=== PATIENT | male | born 1970 ===

== ENCOUNTER 2017-09-15 14:35 | Emergency (ER) | payer OTHER ==
[2017-09-15 15:36] LABS: Absolute Lymphocytes (CBC) 2.7 K/uL (0.7-4.9); Absolute Monocytes 0.8 K/uL (0.1-1.3); Absolute Neutrophil 4.2 K/uL (1.8-8.0); Basophils % 0.7 % (0-1.3); Eosinophils % 1.1 % (0-4.4); Lymphocytes % 34.5 % (15.3-44.8); MCH 31.5 pg (27.0-35.0); MCV 91.5 fL (80-100); MPV 8.4 fL (7.6-11.3); Monocytes % 10.1 % (3.3-12.3); RBC Red Blood Cell Count 4.81 M/uL (4.33-5.43)
[2017-09-15 15:44] LABS: Protime INR 1.03
--- NOTE | 2017-09-15 15:47 | RAD REPORT ---
EXAM DESCRIPTION: Chuckie Single View09/15/2017 3:40 pm CLINICAL HISTORY: Chest pain COMPARISON: 2009 FINDINGS: The lungs appear clear of acute infiltrate. The heart is normal size IMPRESSION: No acute abnormalities displayed
[2017-09-15] MEDS ORDERED: ONDANSETRON 4 MG/2 ML VIAL ONE (15:48)
[2017-09-15] MEDS ORDERED: NA CHLORIDE 0.9% 1,000 ML ONE (15:48)
[2017-09-15] MEDS ORDERED: FAMOTIDINE 20 MG/2 ML VIAL IV ONE (15:48)
--- NOTE | 2017-09-15 16:12 | RAD REPORT ---
EXAM DESCRIPTION: CT - Head Brain Wo Cont - 09/15/2017 4:04 pm CLINICAL HISTORY: Headache and dizziness COMPARISON: 2009 TECHNIQUE: Computed axial tomography of the head was obtained. IV contrast was not requested. All CT scans are performed using dose optimization technique as appropriate and may include automated exposure control or mA/KV adjustment according to patient size. FINDINGS: An intracranial bleed is not seen . The ventricles are normal in caliber. No extra-axial fluid collection is noted. Fluid within the sinuses/ mastoids is not seen. IMPRESSION: No acute intracranial abnormality is seen. If patient's symptoms persist MRI of the bra in would be recommended.
[2017-09-15] MEDS ORDERED: MECLIZINE HCL 12.5 MG TAB ONE (16:30)
[2017-09-15] MEDS ORDERED: NA CHLORIDE 0.9% 500 ML ONE (16:30)
[2017-09-15 16:56] LABS: Potassium 3.7 mEq/L (3.6-5.0)
[2017-09-15 17:02] LABS: Albumin 4.1 g/dL (3.2-5.5); Bilirubin Direct 0.1 mg/dL (0-0.2); Bilirubin Total 0.7 mg/dL (0.3-1.2); Protein, Total 7.1 g/dL (6.0-8.3)
[2017-09-15 17:10] LABS: CKMB Creatine Kinase MB 0.8 ng/ml (0.3-4.0)
[2017-09-15] MEDS ORDERED: DEXAMETHASONE 10 MG/ML VIAL ONE (17:30)
[2017-09-15] MEDS ORDERED: DIAZEPAM 10 MG/2 ML INJ SYRINGE ONE (17:33)
--- NOTE | 2017-09-15 18:14 | EDPHYS ---
Physician Documentation [facility] Name: Cedric Austin Age: 47 yrs Sex: Male : 1970 Arrival Date: 09/15/2017 Time: 14:40 Bed 28 Private MD: out of town, doctor ED Physician Kwesi Ann HPI: 09/15 15:19 This 47 yrs old Unknown Male presents to ER via Ambulatory with complaints of Ear Pain, cp Dizziness, Vomiting. 15:19 The patient presents with hearing loss, partial, pain, that is acute. The complaints cp affect the left ear. 15:19 Onset: The symptoms/episode began/occurred 3 day(s) ago. cp 15:19 Modifying factors: the symptoms are aggravated by movement. Associated signs and cp symptoms: Pertinent positives: headache, left ear pain, tinnitus, nausea, vomiting, vertigo, Pertinent negatives: fever, rhinorrhea, sinus trouble, sore throat. Severity of symptoms: in the emergency department the symptoms are unchanged despite current medical treatment. The patient has been recently seen by a physician: in [place] emergency department, 2 day(s) ago, with similar presenting complaints, prescribed meclizine, antibiotic ear drops. Historical: - Allergies: 15:00 No Known Allergies; hb - Immunization history:: Adult Immunizations up to date. - Social history:: Smoking status: Patient/guardian denies using tobacco. - Ebola Screening: : No symptoms or risks identified at this time. ROS: 15:23 Constitutional: Negative for body aches, chills, fever, poor PO intake. cp 15:23 Eyes: Negative for injury, pain, redness, and discharge. cp 15:23 ENT: Positive for ear pain, hearing loss, Negative for drainage from ear(s), sore throat, difficulty swallowing, difficulty handling secretions, hoarseness. 15:23 Neck: Negative for pain with movement, pain at rest, stiffness, swollen nodes, tenderness. 15:23 Cardiovascular: Negative for chest pain, edema, palpitations. 15:23 Respiratory: Negative for cough, shortness of breath, wheezing. 15:23 Abdomen/GI: Positive for nausea, vomiting, Negative for abdominal pain, diarrhea, constipation, anorexia, black/tarry stool, rectal bleeding. 15:23 Back: Negative for pain at rest, pain with movement, radiated pain. 15:23 : Negative for urinary symptoms, testicular pain 15:23 MS/extremity: Negative for injury or acute deformity, decreased range of motion, pain, paresthesias, swelling, tenderness. 15:23 Skin: Negative for cellulitis, rash. 15:23 Neuro: Positive for dizziness, headache, Negative for altered mental status, loss of consciousness, syncope, near syncope, weakness. 15:23 All other systems are negative. Exam: 15:30 Constitutional: The patient appears alert, awake, non-diaphoretic, non-toxic, well cp developed, well nourished, in obvious distress, mildly distressed. 15:30 Head/Face: Normocephalic, atraumatic. cp 15:30 Eyes: Periorbital structures: appear normal, Pupils: equal, round, and reactive to light and accomodation, Extraocular movements: intact throughout, Conjunctiva: normal, no exudate, no injection, Sclera: no appreciated abnormality, Lids and lashes: appear normal, bilaterally, Visual edwards: are intact. 15:30 ENT: External ear(s): are unremarkable, Ear canal(s): are normal, clear, TM's: bulging, is not appreciated, bilaterally, dullness, bilaterally, erythema, is not appreciated, bilaterally, Nose: is normal, Mouth: Lips: moist, Oral mucosa: pink and intact, moist, Posterior pharynx: is normal, airway is patent, no erythema, no exudate, Voice: is normal. 15:30 Neck: External neck: is normal, Trachea: is midline with no obvious abnormalities, ROM/movement: is normal, is supple, without pain, no range of motions limitations, no meningismus, no nuchal rigidity. 15:30 Chest/axilla: Inspection: normal, Palpation: is normal, no crepitus, no tenderness. 15:30 Cardiovascular: Rate: normal, Rhythm: regular, Pulses: Pulses are 2+ in right radial cp artery and left radial artery. Heart sounds: murmur, not appreciated, rub, not appreciated, gallop, not appreciated, Edema: is not appreciated, JVD: is not appreciated. 15:30 Respiratory: the patient does not display signs of respiratory distress, Respirations: normal, no use of accessory muscles, no retractions, no splinting, no tachypnea, labored breathing, is not present, Breath sounds: are clear throughout, no decreased breath sounds, no stridor, no wheezing. 15:30 Abdomen/GI: Inspection: abdomen appears normal, Bowel sounds: active, all quadrants, Palpation: abdomen is soft and non-tender, in all quadrants, rebound tenderness, is not appreciated, voluntary guarding, is not appreciated, involuntary guarding, is not appreciated. 15:30 Back: pain, is absent, ROM is normal. 15:30 Musculoskeletal/extremity: Exam is negative for bony tenderness, calf tenderness, decreased range of motion, deformity, edema, injury. 15:30 Skin: cellulitis, is not appreciated, no rash present. 15:30 Neuro: Orientation: to person, place \T\ time. Mentation: lucid, able to follow commands, Cranial nerves: CN II- XII are normal as tested, Cerebellar function: Romberg testing is negative, normal finger to nose testing, heel to villanueva testing is normal, able to perform alternating rapid hand movements, Motor: moves all fours, strength is normal, Sensation: is normal. 15:52 ECG was reviewed by the Attending Physician. Vital Signs: 14:59 BP 109 / 75; Pulse 70; Resp 16; Temp 98.1; Pulse Ox 100% on R/A; Pain 4/10; hb 16:00 BP 117 / 81; Pulse 59; Resp 17; Pulse Ox 99% on R/A; rk2 17:50 BP 104 / 72; Pulse 62; Resp 17; Pulse Ox 99% on R/A; rk2 MDM: 15:06 Patient medically screened. cp 16:00 Differential diagnosis: otitis media, otitis externa, vertigo, sinusitis, mastoiditis. 18:10 Data reviewed: vital signs, nurses notes, lab test result(s), EKG, radiologic studies, cp CT scan. 18:10 Test interpretation: by ED physician or midlevel provider: ECG. Counseling: I had a cp detailed discussion with the patient and/or guardian regarding: the historical points, exam findings, and any diagnostic results supporting the discharge/admit diagnosis, lab results, radiology results, the need for outpatient follow up, a neurologist, to return to the emergency department if symptoms worsen or persist or if there are any questions or concerns that arise at home. Response to treatment: improved. Patient observed able to ambulate unassisted in ED. Nausea improved and vomiting resolved, and as a result, I will discharge patient. 09/15 15:18 Order name: Basic Metabolic Panel; Complete Time: 17:14 cp 09/15 17:14 Interpretation: BUN 24; GFR 86; Reviewed. 09/15 15:18 Order name: BNP; Complete Time: 16:08 cp 09/15 15:18 Order name: CBC with Diff; Complete Time: 16:08 09/15 16:08 Interpretation: Reviewed. 09/15 15:18 Order name: Ckmb; Complete Time: 17:14 cp 09/15 15:18 Order name: CPK; Complete Time: 17:14 cp 09/15 15:18 Order name: LFT's; Complete Time: 17:14 cp 09/15 15:18 Order name: Magnesium; Complete Time: 17:14 09/15 15:18 Order name: PT-INR; Complete Time: 16:08 09/15 15:18 Order name: Ptt, Activated; Complete Time: 16:08 09/15 15:18 Order name: Troponin (emerg Dept Use Only); Complete Time: 16:08 09/15 15:18 Order name: XRAY Chest (1 view); Complete Time: 16:08 09/15 16:08 Interpretation: Report review. 09/15 15:30 Order name: CT Head Brain wo Cont; Complete Time: 16:17 09/15 16:17 Interpretation: Report reviewed. 09/15 15:18 Order name: EKG; Complete Time: 15:19 09/15 15:18 Order name: Cardiac monitoring; Complete Time: 15:50 09/15 15:18 Order name: EKG - Nurse/Tech; Complete Time: 15:50 09/15 15:18 Order name: IV Saline Lock; Complete Time: 15:29 cp 09/15 15:18 Order name: Labs collected and sent; Complete Time: 15:29 cp 09/15 15:18 Order name: O2 Per Protocol; Complete Time: 15:29 cp 09/15 15:18 Order name: O2 Sat Monitoring; Complete Time: 15:29 cp EC:52 Rate is 58 beats/min. Rhythm is regular. [place] interval is normal. QRS interval is normal. cp QT interval is normal. No ST changes noted. Interpreted by me. Reviewed by me. Administered Medications: 15:49 Drug: Pepcid 20 mg Route: IVP; Site: left antecubital; rk2 16:31 Follow up: Response: No adverse reaction rk2 15:49 Drug: NS 0.9% 1000 ml Route: IV; Rate: 1 bolus; Site: left antecubital; rk2 16:10 Follow up: Response: No adverse reaction; IV Status: Completed infusion rk2 15:50 Drug: Zofran 4 mg Route: IVP; Site: left antecubital; rk2 16:31 Follow up: Response: No adverse reaction rk2 16:30 Drug: Meclizine 25 mg Route: PO; rk2 16:54 Follow up: Response: No adverse reaction rk2 16:30 Drug: NS 0.9% 500 ml Route: IV; Rate: bolus; Site: left antecubital; rk2 17:00 Follow up: Response: No adverse reaction; IV Status: Completed infusion rk2 17:36 Drug: Decadron - Dexamethasone 10 mg Route: IVP; Site: left antecubital; rk2 18:40 Follow up: Response: No adverse reaction rk2 17:36 Drug: Diazepam 2 mg Route: IVP; Site: left antecubital; rk2 18:40 Follow up: Response: No adverse reaction rk2 Disposition: 09/16 09:07 Co-signature as Attending Physician, Kwesi Ann MD I agree with the assessment and negrita plan of care. Disposition: 09/15/17 18:13 Discharged to Home. Impression: Vertigo. - Condition is Stable. - Discharge Instructions: Vertigo. - Prescriptions for Meclizine 25 mg Oral Tablet - take 1 tablet by ORAL route every 8 hours As needed; 30 tablet. Zofran 4 mg Oral Tablet - take 1 tablet by ORAL route every 12 hours As needed; 20 tablet. Medrol (Ned) 4 mg Oral Tablets, Dose Pack - take 1 tablet by ORAL route as directed - follow package instructions; 1 packet. - Medication Reconciliation Form, Thank You Letter, Antibiotic Education, Prescription Opioid Use form. - Follow up: Chacorta Quigley MD; When: 1 - 2 days; Reason: Recheck today's complaints. - Problem is an ongoing problem. - Symptoms have improved. Signatures: Dispatcher [employer] Kwesi Kruse MD MD cha Page, Corey, PA PA cp Baxter, Heather, RN RN Gilda Lindsay RN RN rk2 Corrections: (The following items were deleted from the chart) 09/15 19:06 18:13 09/15/2017 18:13 Discharged to Home. Impression: Vertigo. Condition is Stable. rk2 Forms are Medication Reconciliation Form, Thank You Letter, Antibiotic Education, Prescription Opioid Use. Follow up: Chacorta Quigley; When: 1 - 2 days; Reason: Recheck today's complaints. Problem is an ongoing problem. Symptoms have improved. cp
--- NOTE | 2017-09-15 18:14 | ER ---
Nurse's Notes [facility] Name: Cedric Austin Age: 47 yrs Sex: Male : 1970 Arrival Date: 09/15/2017 Time: 14:40 Bed 28 Private MD: out of town, doctor Diagnosis: Vertigo Presentation: 09/15 14:58 Presenting complaint: Patient states: Left ear pain, decreased hearing, headache, hb dizziness, and nausea x 2 days. Transition of care: patient was not received from another setting of care. Onset of symptoms was September 14, 2017. Risk Assessment: Do you want to hurt yourself or someone else? Patient reports no desire to harm self or others. Initial Sepsis Screen: Does the patient meet any 2 criteria? No. Patient's initial sepsis screen is negative. Does the patient have a suspected source of infection? No. Patient's initial sepsis screen is negative. 14:58 Method Of Arrival: Ambulatory hb 14:58 Acuity: LINDSAY 3 hb 14:59 Care prior to arrival: Medication(s) given: meclizine, neomycin ear drops. hb Triage Assessment: 16:33 General: Appears in no apparent distress. well groomed, well developed, well nourished, rk2 Behavior is calm, cooperative. Pain: Complains of pain in ear. EENT: Reports dizzy. Neuro: Level of Consciousness is alert, obeys commands, Oriented to person, place, time, situation. Cardiovascular: Rhythm is sinus rhythm. Respiratory: Airway is patent Respiratory effort is even, unlabored, Respiratory pattern is regular, symmetrical. Derm: Skin is pink, warm \\T\\ dry. Historical: - Allergies: 15:00 No Known Allergies; hb - Immunization history:: Adult Immunizations up to date. - Social history:: Smoking status: Patient/guardian denies using tobacco. - Ebola Screening: : No symptoms or risks identified at this time. Screenin:00 Abuse screen: Denies threats or abuse. rk2 16:00 Nutritional screening: No deficits noted. Tuberculosis screening: No symptoms or risk rk2 factors identified. 16:00 Fall Risk None identified. rk2 Assessment: 16:53 Reassessment: Patient appears in no apparent distress at this time. No changes from rk2 previously documented assessment. Patient and/or family updated on plan of care and expected duration. Pain level reassessed. Still feeling dizzy. 17:58 Reassessment: Pt. states that he is still feeling dizzy "the room is moving" and that rk2 he has left side ear pain. Pt. unable to get up without feeling dizzy. 18:11 Reassessment: Pt. was able to get up and ambulate with minimal assistance... states rk2 that once he was up and moving he felt better than he did. Vital Signs: 14:59 BP 109 / 75; Pulse 70; Resp 16; Temp 98.1; Pulse Ox 100% on R/A; Pain 4/10; hb 16:00 BP 117 / 81; Pulse 59; Resp 17; Pulse Ox 99% on R/A; rk2 17:50 BP 104 / 72; Pulse 62; Resp 17; Pulse Ox 99% on R/A; rk2 ED Course: 14:40 Patient arrived in ED. mr 14:40 out of town, doctor is Private Physician. mr 14:59 Triage completed. hb 15:00 Arm band placed on right wrist. hb 15:06 Kwesi Jarrell PA is PHCP. cp 15:06 Kwesi Ann MD is Attending Physician. cp 15:16 Gilda Lnidsay, RN is Primary Nurse. rk2 15:40 XRAY Chest (1 view) In Process Unspecified. EDMS 15:48 EKG done, by ED staff. jp3 15:54 CT Head Brain wo Cont Sent. rk2 16:00 Patient has correct armband on for positive identification. Bed in low position. Call rk2 light in reach. Side rails up X2. inside steward/stewardess on. Pulse ox on. 16:00 Inserted saline lock: 18 gauge in left. rk2 16:01 CT completed. Patient moved to CT via wheelchair. Patient moved back from CT. cw1 16:04 CT Head Brain wo Cont In Process Unspecified. EDMS 18:12 Chacorta Quigley MD is Referral Physician. cp 18:39 No provider procedures requiring assistance completed. IV discontinued. rk2 Administered Medications: 15:49 Drug: Pepcid 20 mg Route: IVP; Site: left antecubital; rk2 16:31 Follow up: Response: No adverse reaction rk2 15:49 Drug: NS 0.9% 1000 ml Route: IV; Rate: 1 bolus; Site: left antecubital; rk2 16:10 Follow up: Response: No adverse reaction; IV Status: Completed infusion rk2 15:50 Drug: Zofran 4 mg Route: IVP; Site: left antecubital; rk2 16:31 Follow up: Response: No adverse reaction rk2 16:30 Drug: Meclizine 25 mg Route: PO; rk2 16:54 Follow up: Response: No adverse reaction rk2 16:30 Drug: NS 0.9% 500 ml Route: IV; Rate: bolus; Site: left antecubital; rk2 17:00 Follow up: Response: No adverse reaction; IV Status: Completed infusion rk2 17:36 Drug: Decadron - Dexamethasone 10 mg Route: IVP; Site: left antecubital; rk2 18:40 Follow up: Response: No adverse reaction rk2 17:36 Drug: Diazepam 2 mg Route: IVP; Site: left antecubital; rk2 18:40 Follow up: Response: No adverse reaction rk2 Outcome: 18:13 Discharge ordered by . shantel 18:39 Discharged to home via wheelchair, with family. rk2 18:39 Condition: good 18:39 Discharge instructions given to patient, Prescriptions given X 3. 19:06 Patient left the ED. rk2 Signatures: Dispatcher [employer] EDLinn Ramírez RobertaMamie cw1 Kwesi Jarrell PA PA cp Baxter, Heather, Gilda Valle RN, RN RN rk2 Kenny Sandhu jp3
--- NOTE | 2017-09-16 06:31 | EKG ---
Test Date: 2017-09-15 Test Time: 15:48:51 [employer] Teacher: RALPH MEASUREMENT RESULTS: Intervals: Rate: 58 NE: 146 QRSD: 100 QT: 394 QTc: 386 [place]: P: 60 NE: 146 QRS: 87 T: 63 INTERPRETIVE STATEMENTS: Sinus bradycardia with sinus arrhythmia Otherwise normal ECG Compared to ECG 09/20/2009 04:12:13 Right-axis deviation no longer present Electronically Signed On 09-16-17 06:29:08 CDT by Kal Logan
== END 2017-09-15 19:06 | disposition home or self-care (01) ==
LOC: ER 14:35
DX: R42 Dizziness and giddiness (principal)
CPT/HCPCS: 36415; 70450; 71045; 80048; 80076; 82550; 82553; 83735; 83880; 84484; 85025; 85610; 85730; 93005; 96361; 96374; 96375; 99285; J1100; J2405; J3360; J7030

== ENCOUNTER 2019-04-28 09:41 | Emergency (ER) | payer OTHER ==
--- NOTE | 2019-04-28 10:47 | RAD REPORT ---
EXAM DESCRIPTION: CT - Head Brain Wo Cont - 04/28/2019 10:39 am CLINICAL HISTORY: Numbness COMPARISON: 2018 TECHNIQUE: Computed axial tomography of the head was obtained. IV contrast was not requested. All CT scans are performed using dose optimization technique as appropriate and may include automated exposure control or mA/KV adjustment according to patient size. FINDINGS: An intracranial bleed is not seen . The ventricles are normal in caliber. No extra-axial fluid collection is noted. Fluid within the sinuses/ mastoids is not seen. IMPRESSION: No acute intracranial abnormality is seen. If patient's symptoms persist MRI of the bra in would be recommended.
--- NOTE | 2019-04-28 10:53 | EDPHYS ---
Physician Documentation [facility] Name: Cedric Austin Age: 49 yrs Sex: Male : 1970 Arrival Date: 04/28/2019 Time: 09:43 Bed 14 Private MD: ED Physician Elvi Osman HPI: 04/28 10:51 This 49 yrs old Unknown Male presents to ER via Ambulatory with complaints of Ear Pain, ma2 Dizziness. 10:51 The patient presents with vertigo. The complaints affect the left pentecostal. Onset: The ma2 symptoms/episode began/occurred gradually, 1 day(s) ago. Associated signs and symptoms: Pertinent negatives: fever, rhinorrhea, shortness of breath, tinnitus. Severity of symptoms: At their worst the symptoms were mild in the emergency department the symptoms have resolved. The patient has not experienced similar symptoms in the past. Historical: - Allergies: 10:06 No Known Allergies; sv - PMHx: 10:08 vertigo; sv - Immunization history:: Adult Immunizations unknown. - Social history:: Smoking status: Patient/guardian denies using tobacco, the patient reports quitting approximately 8 years ago, Patient/guardian denies using alcohol, street drugs, The patient lives with family. - Ebola Screening: : No symptoms or risks identified at this time. - Family history:: not pertinent. ROS: 10:51 Constitutional: Negative for fever, chills, and weight loss. ma2 10:51 All other systems are negative. Exam: 10:51 Constitutional: This is a well developed, well nourished patient who is awake, alert, ma2 and in no acute distress. Head/Face: Normocephalic, atraumatic. Eyes: Pupils equal round and reactive to light, extra-ocular motions intact. Lids and lashes normal. Conjunctiva and sclera are non-icteric and not injected. Cornea within normal limits. Periorbital areas with no swelling, redness, or edema. ENT: Nares patent. No nasal discharge, no septal abnormalities noted. Tympanic membranes are normal and external auditory canals are clear. Oropharynx with no redness, swelling, or masses, exudates, or evidence of obstruction, uvula midline. Mucous membranes moist. Neck: Trachea midline, no thyromegaly or masses palpated, and no cervical lymphadenopathy. Supple, full range of motion without nuchal rigidity, or vertebral point tenderness. No Meningismus. Chest/axilla: Normal chest wall appearance and motion. Nontender with no deformity. No lesions are appreciated. Cardiovascular: Regular rate and rhythm with a normal S1 and S2. No gallops, murmurs, or rubs. Normal PMI, no JVD. No pulse deficits. Respiratory: Lungs have equal breath sounds bilaterally, clear to auscultation and percussion. No rales, rhonchi or wheezes noted. No increased work of breathing, no retractions or nasal flaring. Abdomen/GI: Soft, non-tender, with normal bowel sounds. No distension or tympany. No guarding or rebound. No evidence of tenderness throughout. MS/ Extremity: Pulses equal, no cyanosis. Neurovascular intact. Full, normal range of motion. Neuro: Awake and alert, GCS 15, oriented to person, place, time, and situation. Cranial nerves II-XII grossly intact. Motor strength 5/5 in all extremities. Sensory grossly intact. Cerebellar exam normal. Normal gait. Vital Signs: 10:06 BP 126 / 92; Pulse 69; Resp 16; Temp 98.7; Pulse Ox 100% ; sv 10:49 BP 123 / 82; Pulse 67; Resp 17 S; Pulse Ox 99% on R/A; ca1 MDM: 10:41 Patient medically screened. ma2 10:51 Differential diagnosis: otitis media, cerumen impaction, serotympanum. Data reviewed: [facility] vital signs, nurses notes. Counseling: I had a detailed discussion with the patient and/or guardian regarding: the historical points, exam findings, and any diagnostic results supporting the discharge/admit diagnosis, the presence of at least one elevated blood pressure reading (>120/80) during this emergency department visit, the need for outpatient follow up. Response to treatment: the patient's symptoms have markedly improved after treatment. 04/28 10:17 Order name: CT Head Brain wo Cont; Complete Time: 10:50 sv Administered Medications: 10:57 Drug: Meclizine 25 mg Route: PO; ca1 11:02 Follow up: Response: Medication administered at discharge. ca1 Disposition: 04/28/19 10:52 Discharged to Home. Impression: Vertiginous syndromes in diseases classified elsewhere, left ear. - Condition is Stable. - Discharge Instructions: Benign Positional Vertigo. - Prescriptions for Reglan 10 mg Oral Tablet - take 1 tablet by ORAL route every 6 hours . take 30 minutes before meals and at bedtime; 100 tablet. Medrol (Ned) 4 mg Oral Tablets, Dose Pack - take 1 tablet by ORAL route as directed - follow package instructions; 1 packet. - Medication Reconciliation Form, Thank You Letter, Antibiotic Education, Prescription Opioid Use form. - Follow up: Private Physician; When: Tomorrow; Reason: Recheck today's complaints, Continuance of care. Signatures: Dispatcher [employer] Sabi Finney, RN RN Elvi Luther MD MD ma2 Cha Rose RN RN ca1 Corrections: (The following items were deleted from the chart) 11:05 10:52 04/28/2019 10:52 Discharged to Home. Impression: Vertiginous syndromes in ca1 diseases classified elsewhere, left ear. Condition is Stable. Forms are Medication Reconciliation Form, Thank You Letter, Antibiotic Education, Prescription Opioid Use. Follow up: Private Physician; When: Tomorrow; Reason: Recheck today's complaints, Continuance of care. ma2
--- NOTE | 2019-04-28 10:53 | ER ---
Nurse's Notes [facility] Name: Cedric Austin Age: 49 yrs Sex: Male : 1970 Arrival Date: 04/28/2019 Time: 09:43 Bed 14 Private MD: Diagnosis: Vertiginous syndromes in diseases classified elsewhere, left ear Presentation: 04/28 10:04 Presenting complaint: Patient states: left ear pain and dizziness x 2 years, but sv reports the pain has increased and has numbness to left jaw/right jaw radiating to top of head that began today around 0300. No facial droop noted, no drift noted, java j2ee lead equal. Pt states "my doctor said the vein in the back of my head is blocked and he gave me Xarelto but none of the medicines I take help". Sensation to both sides of face intact at this time. Transition of care: patient was not received from another setting of care. Care prior to arrival: None. 10:04 Method Of Arrival: Ambulatory sv 10:04 Acuity: LINDSAY 3 sv 10:04 Onset of symptoms was 2018. Risk Assessment: Do you want to hurt yourself or someone sv else? Patient reports no desire to harm self or others. Initial Sepsis Screen: Does the patient meet any 2 criteria? No. Patient's initial sepsis screen is negative. Does the patient have a suspected source of infection? No. Patient's initial sepsis screen is negative. Historical: - Allergies: 10:06 No Known Allergies; sv - PMHx: 10:08 vertigo; sv - Immunization history:: Adult Immunizations unknown. - Social history:: Smoking status: Patient/guardian denies using tobacco, the patient reports quitting approximately 8 years ago, Patient/guardian denies using alcohol, street drugs, The patient lives with family. - Ebola Screening: : No symptoms or risks identified at this time. - Family history:: not pertinent. Screenin:54 Abuse screen: Denies threats or abuse. Denies injuries from another. Nutritional ca1 screening: No deficits noted. Tuberculosis screening: No symptoms or risk factors identified. Fall Risk None identified. Assessment: 10:49 General: Appears in no apparent distress. comfortable, Behavior is calm, cooperative, ca1 appropriate for age. Pain: Complains of pain in right ear Pain currently is 6 out of 10 on a pain scale. Pain began this morning. Neuro: Level of Consciousness is awake, alert, obeys commands, Oriented to person, place, time, situation, Appropriate for age Carbide Operator are equal bilaterally Moves all extremities. Gait is steady, Speech is normal, Facial symmetry appears normal, Pupils are PERRLA, Intact Reports dizziness, chronic x 2 years. Cardiovascular: Heart tones S1 S2 present Capillary refill < 3 seconds Patient's skin is warm and dry. Respiratory: Airway is patent Respiratory effort is even, unlabored, Respiratory pattern is regular, symmetrical, Breath sounds are clear bilaterally. GI: Abdomen is flat, non-distended, Bowel sounds present X 4 quads. Abd is soft and non tender X 4 quads. : No deficits noted. No signs and/or symptoms were reported regarding the genitourinary system. EENT: Tympanic membrane clear on left ear and right ear Ear canal clear on left ear and right ear. Derm: Skin is intact, is healthy with good turgor, Skin is pink, warm \\T\\ dry. Musculoskeletal: Circulation, motion, and sensation intact. Capillary refill < 3 seconds, Range of motion: intact in all extremities. Vital Signs: 10:06 BP 126 / 92; Pulse 69; Resp 16; Temp 98.7; Pulse Ox 100% ; sv 10:49 BP 123 / 82; Pulse 67; Resp 17 S; Pulse Ox 99% on R/A; ca1 ED Course: 09:43 Patient arrived in ED. as 10:06 Arm band placed on. sv 10:12 Triage completed. sv 10:39 CT Head Brain wo Cont In Process Unspecified. EDMS 10:41 Elvi Osman MD is Attending Physician. ma2 10:42 Cha Rose, JUANITA is Primary Nurse. ca1 10:54 Patient has correct armband on for positive identification. Bed in low position. Call ca1 light in reach. Side rails up X 1. Pulse ox on. NIBP on. Warm blanket given. 10:54 No provider procedures requiring assistance completed. Patient did not have IV access ca1 during this emergency room visit. Administered Medications: 10:57 Drug: Meclizine 25 mg Route: PO; ca1 11:02 Follow up: Response: Medication administered at discharge. ca1 Outcome: 10:52 Discharge ordered by . ma2 11:04 Discharged to home ambulatory. ca1 11:04 Condition: stable 11:04 Discharge instructions given to patient, Instructed on discharge instructions, follow up and referral plans. medication usage, Demonstrated understanding of instructions, follow-up care, medications, Prescriptions given X 2. 11:05 Patient left the ED. ca1 Signatures: Dispatcher [employer] Sabi Finney RN RN sv Tami Iniguez Mohammad, MD MD ma2 Cha Rose RN RN ca1 Corrections: (The following items were deleted from the chart) 10:12 10:04 Presenting complaint: Patient states: left ear pain and dizziness x 2 years, but sv reports the pain has increased and has sv 10:16 10:04 Presenting complaint: Patient states: left ear pain and dizziness x 2 years, but sv reports the pain has increased and has numbness to left jaw/right jaw radiating to top of head that began today around 0300. No facial droop noted, no drift noted, java j2ee lead equal. sv 10:17 10:04 Presenting complaint: Patient states: left ear pain and dizziness x 2 years, but sv reports the pain has increased and has numbness to left jaw/right jaw radiating to top of head that began today around 0300. No facial droop noted, no drift noted, java j2ee lead equal. Pt states "my doctor said the vein in the back of my head is blocked and he gave me Xarelto but none of the medicines I take help". sv
[2019-04-28] MEDS ORDERED: MECLIZINE HCL 12.5 MG TAB ONE (10:58)
[2019-04-28 13:24] VITALS: TEMP 98.7
[2019-04-28 13:25] VITALS: BP 123/82; O2SAT 99
== END 2019-04-28 11:05 | disposition home or self-care (01) ==
LOC: ER 09:41
DX: H92.02 Otalgia, left ear (principal); H82.2 Vertiginous syndromes in diseases classified elsewhere, left ear
CPT/HCPCS: 70450; 99284; J8597

== ENCOUNTER 2020-02-01 15:16 | Emergency (ER) | payer OTHER ==
--- OUTSIDE RECORDS SUMMARY | 2020-02-01 15:25 | XMS REPORT | Summary of Care ---
:1970 Author Organization [facility] [place] [address] Care Team Providers Name Role Phone Rafat Vick MD Primary Care Provider Reason for Referral Radiology Services (Routine) Status Reason Specialty Diagnoses / Procedures Referred By Serene howell Referred To Contact Pending Radiology Diagnoses Dizziness and giddiness Tinnitus of left ear New onset of headaches Flores Stokes Mr Imaging Procedures MRI BRAIN W WO CONTRAST JOSE Solis [address] [facility] [address] [place], [place] [address] [id number] [place], [place] [address] Phone: Consult, Test & Treat (Routine) Status Reason Specialty Diagnoses / Referred By Referred To Procedures Contact Contact Pending Consult, Test, Audiology Diagnoses Dizziness and giddiness Flores Stokes Antonino Lab and Treat Procedures NC CALORIC VESTIBULAR TEST W/REC BI BITHERMAL NC VESTIBULAR EVAL NYSTAG FOVL&PERPH STIM OSCIL TRACKING NC SINUSOIDAL ROTATIONAL TEST NC SUPPLEMENTAL ELECTRICAL TEST NC AUDITORY EVOKED POTENTIAL JOSE Solis [address] [facility] [address] [facility] [address] [place], [place] [address] [id number] [place], [place] Phone: [phone] Phone: Reason for Visit Reason Comments Tinnitus left ear, sometimes causes p ain Otalgia left ear pain and dizziness Encounter Details Date Type Department Care Team Description 12/16/2019 Office Visit [facility] Flores Stokes Tinnitus (left ear, Medicine JOSE Solis sometimes causes pain Otolaryngology [address] Otalgia (left ear [address] pain and dizziness) Billy [address] [place] [address] [place] [address] [phone] Allergies No Known Allergiesdocumented as of this encounter (statuses as of 12/16/2019) Medications Medication Sig Dispensed Refills Start Date End Date Status clopidogrel (PLAVIX) 75 MG Tablet 0 2019 Active pantoprazole (PROTONIX) 40 MG tablet 0 11/2019 Active documented as of this encounter (statuses as of 12/16/2019) Active Problems Not on filedocumented as of this encounter (statuses as of 12/16/2019) Social History Tobacco Use Types Packs/Day Years Used Date Former Smoker Smokeless Tobacco: Never Used Sex Assigned at Date Recorded Not on file documented as of this encounter Last Filed Vital Signs Vital Sign Reading Time Taken Comments Blood Pressure 107/82 12/16/2019 9:51 AM CDT Pulse 69 12/16/2019 9:51 AM CDT Temperature 36.2 C (97.1 F) 12/16/2019 9:51 AM CDT Respiratory Rate - - Oxygen Saturation - - Inhaled Oxygen Concentration - - Weight 66.7 kg (147 lb) 12/16/2019 9:51 AM CDT Height 157.5 cm (5' 2") 12/16/2019 9:51 AM CDT Body Mass Index 26.89 12/16/2019 9:51 AM CDT documented in this encounter Progress Notes Flores Stokes NP - 12/16/2019 9:30 AM CDT Chief complaint(s)/Reason(s) for Consultation: Chief Complaint Patient presents with Tinnitus left ear, sometimes causes pain Otalgia left ear pain and dizziness History of Present Illness: Cedric Austin is a 49 y.o. year old male presenting today for evaluation of persistent left-sidedtinnitus for the past two years. He describes his tinnitus as a constant, non-pulsatile, high-pitched ringing that is most noticeable in quiet environments, particularly before bed. He states it is often so loud and bothersome that it inhibits his sleep, prompting him to take sleep aids almost nightly. The intensity of his tinnitus varies and is, at times, so loud it is painful. He reports intermittent and sporadic left ear pain that is described as a sharp pain that radiates to the left side of hishead and neck. Pain lasts 10- 15 minutes at a time and is often precipitated by loud sounds and accompanied by dizziness, which he describes as a spinning that is, likewise, triggered by loud sounds. Novertigo with coughing or sneezing. He reports intermittent numbness to the left side of his face andneck, which lasts 15-30 minutes and occurs 1-2 times per week. In addition, he reports unilateral, left-sided headaches that last 2 hours at a time and occur about 3 times per week. No aura, light sensi tivity, sound sensitivity, nausea, emesis. He takes otc analgesics with some benefit. Surgical history is significant for sinus surgery two years, by Dr. Mir Thibodeaux ENT. Of note, he reports having consulted Dr. Thibodeaux, as well as Dr. Tolbert ENT, about his tinnitus and intermittent dizziness and otalgia. He reports he had a hearing test two years ago, at onset of tinnitus, which was reportedly normal. He denies otorrhea, subjective hearing loss, recent head and ear trauma, family history of hearing loss, significant noise exposure, prior otologic surgeries, and history of frequent ear infections. No dysarthria, acute vision changes, or other focal neurologic symptom. Past Medical History: Past Medical History: Diagnosis Date High cholesterol Past Surgical History: Past Surgical History: Procedure Laterality Date HX SINUS SURGERY 2018 Allergies: Patient has no known allergies. Medication: Current Outpatient Medications: clopidogrel (PLAVIX) 75 MG Tablet, , Disp: , Rfl: pantoprazole (PROTONIX) 40 MG tablet, , Disp: , Rfl: Social History: Social History Tobacco Use Smoking status: Former Smoker Smokeless tobacco: Never Used Substance Use Topics Alcohol use: Not on file Drug use: Not on file Current/previous occupation: rv service technician Family History: Reviewed and non-contributory Review of Systems: General: No fevers, chills, or weight loss. No fatigue. Vision: No recent acute vision changes, or eye pain HENT: See HPI Respiratory: No recent or acute dyspnea or hemoptysis. No cough or wheezing. Cardiovascular: No recent chest pain or palpitations. Gastrointestinal: No abdominal pain or melena. No recent diarrhea or constipation. No hematemesis. Genitourinary: No dysuria, incontinence, or hematuria. Musculoskeletal: +occasional neck pain. No other unexpected bone or joint pain or stiffness. Skin: No lesions, ulcers or rashes. No changes in moles. Hematologic: No abnormal bleeding or easy bruising. No anemia. Neurological: No recent seizures or paralysis, paresthesias, weakness, dysphagia, or memory loss. Physical Exam: Vital Signs: Vitals: 12/16/19 0951 BP: 107/82 Pulse: 69 Temp: 97.1 F (36.2 C) Weight: 147 lb (66.7 kg) Height: 5' 2" (1.575 m) General: Well-groomed, no acute distress. Strong voice. No appreciated stridor or stertor during the examination Head/face: Normocephalic. Normal facial tone. No parotid, preauricular, or submandibular masses or adenopathy.There is no tenderness to palpation. Facial strength and sensation are intact bilaterally,Brackman scale 1/6 bilaterally, symmetric Eyes: Extraoccular movements are intact. There is no spontaneous or gaze induced nystagmus. Pupilsappear equally round and reactive to light. Ears: The auricles are well formed. Right ear: external auditory canal is clear and patent, without any lesions/defects or drainage. The tympanic membrane appears to be intact without any perforations or retraction pockets. The middle ear appears to be well aerated without any fluid, mass or lesion. Left ear: external auditory canal is clear and patent, without any lesions/defects or drainage. Thetympanic membrane appears to be intact without any perforations or retraction pockets. The middle ear appears to be well aerated without any fluid, mass or lesion. Nose/Nasopharynx: No lesions, masses, or discharge. The septum appears to be intact without any ulcerations. Oral cavity/Oropharynx: No visible lesions, masses, exudate appreciated. Tongue is fully mobile andextends midline. Soft palate elevates symmetrically. Neck: Supple. No lymphadenopathy or masses. Full range of motion. Respiratory: Respirations unlabored. Chest rises symmetrically with inspiration Cardiovascular: Heart with regular rate and rhythm. Neurological: Awake, alert and oriented to person, time, and place. Face symmetric, no tongue deviation, symmetric palatal elevation, no facial numbness, no facial weakness. Normal affect. Skin: No suspicious lesions. No rashes. No abnormal moles. Diagnostic Tests Reviewed: None available for review. Diagnosis: This is a 39 year old with tinnitus, dizziness, and new onset headaches, as well as intermittent otalgia for which I see no readily discernible cause with binocular microscopy or physical exam. Dizziness and tinnitus are often brought on by loud sounds, rule out semicircular canal dehiscence. Plan of Care: We discussed the pathophysiology of tinnitus, including its possible association with hearing loss. I recommend audiogram to further evaluate. In regards to his ear pain, we discussed the physiology ofotalgia in the setting of complex and shared sensory innervation of the ears, throat, sinuses, jaw and periauricular neuromusculature. In this case, the ears are generally well appearing and I see no discrete cause of his ear pain. Regarding his dizziness, I recommend a balance test, to include VEMPs, as his vertigo is often brought on by loud sounds. We discussed possibly proceeding with CT temporal bone after initial evaluation with VEMPs, should any abnormality be noted. He would also like an MRI due to new onset of frequent headaches. Order for balance testing, MRI, and audiogram have been placed. I will call him with hearing test results and would like him to follow-up in clinic for review of MRI and balance testing, once completed. All questions were answered, and my contact information was provided should new concerns arise. Patient indicated understanding and is in agreement with statedplan. Flores Stokes NP [facility] Department of Otolaryngology- Head and Neck Surgery documented in this encounter Plan of Treatment Date Type Specialty Care Team Description 12/28/2019 Clinical Support Audiology Mart Melendrez, [facility] [address] [facility] [address] [place], [place] [address] [phone] 01/26/2020 Clinical Support Audiology 02/17/2020 Office Visit Otolaryngology Flores Stokes, JOSE [address] [place], [place] [address] [phone] Name Type Priority Associated Diagnoses Order S chedule MRI BRAIN W WO Imaging Routine Dizziness and gi ddiness 1 Occurrences starting CONTRAST Tinnitus of left ear 12/16/2019 until New onset of headaches 07/15 Name Type Priority Associated Diagnoses Order S chedule AMB REF TO [facility] Outpatient Referral Routine Dizziness and Order ed: BALANCE TEST giddiness 12/16/2019 [facility] Due Date Last Done Comments TETANUS SHOT (ADULT) 1986 HIV SCREENING 1989 FLU VACCINE > 6 MONTHS 11/07/2019 ZOSTER VACCINE (1 of 2) 2021 documented as of this encounter Results Not on filedocumented in this encounter Visit Diagnoses Diagnosis Tinnitus of left ear - Primary Unspecified tinnitus Dizziness and giddiness New onset of headaches Headache Left ear pain Otalgia, unspecified documented in this encounter Insurance Payer Benefit Plan / Subscriber ID Effective Dates Phone Addre ss Type Group [facility] - [id number] 2019-Present [address] [place] [address] documented as of this encounter
--- OUTSIDE RECORDS SUMMARY | 2020-02-01 15:25 | XMS REPORT | Continuity of Care Document ---
:1970 Author Organization [facility] t Address [address] [place] [address] Care Team Providers Name Role Phone Kike GARCIA Attending Clinician Irma Stokes NP Attending Clinician Payers Payer Name Policy Type Policy Effective Date Expiration Date Sour ce Number AMBETTERAMBETTER [id number] [id number] 00:00:00 Medical /[address] [place] [address] Problems This patient has no known problems. Allergies, Adverse Reactions, Alerts Allergy Allergy Status Severity Reaction(s) Onset Inactive Treating Comm ents Source Name Type Date Date Clinician No Known DA Active U 2017- [facility] [place] 00:[place]: [address] No Known DA Active U [facility] 10-06 [place] 00:00: [address] Social History Social Habit Start Date Stop Date Quantity Comments Source Sex Assigned At [facility] Medications This patient has no known medications. Procedures This patient has no known procedures. Encounters Start End Encounter Admission Attending Care Care Encounter Source Date/Time Date/Time Type Type Clinicians Facility Department ID 2019-12-16 2019-12-16 Office GHULAM Stokes [id number] 09:41:27 10:37:18 Visit Flores DAVE [id number] Irma Ellis [id number] Results Test Description Test Time Test Comments Results Result Comments Source PROSTATE,TUR 2019-08-14 13:47:00 RUN DATE: 08/14/19 [facility] PAGE 1 RUN TIME: 1347 Specimen Inquiry RUN USER: INTERFACE ELVA IENT: JESSICA CRUZ LOC: [facility] U #: [id number] AGE/SX: 49/M ROOM: [facility] RE08/13/19MARIA LUISA DR: Joaquin Manuel MD : 72 BED: A DIS: 08/14/19 STATUS: DIS Ct TLOC: SPEC #: [id number] RECD: 08/13/19-1309 STATUS: MARKELL MACE #: [id number] GÓMEZ: 08/13/[address] [facility] [address]: Joaquin Manuel MD ENTERED: 08/13/19 SP TYPE: PROSTTUR OTHR DR: No Primary or Family Physician Sheyla Barragan MDORDERED: SURG PATH LVL 4 CODES: [id number] - PROSTATE, NOS [id number] - BODY TISSUE, NO STROMAL HYPERPL COPIES TO: No Primary [place] [address] [place] [address] [place] [address] [facility] [address] [place] [address] [email or web address] PROCEDURES: SURG PATH LVL 4 (08/13/19) TISSUES: A. PROSTATE, NOS - PROSTATE CHIPS CLINICAL HISTORY BPH, S/P HOLMEP CPT CODES CPT CODE(S): 06327 , , , , , , FINAL DIAGNOSIS Prostate chips, HoLMEP: BENIGN PROSTATIC TISSUE WITH STROMAL HYPERPLASIA CONTINUED ON NEXT PAGE RUN DATE: 08/14/19 [facility] PAGE 2 RUN TIME: 1347 Specimen Inquiry RUN USER: INTERFACE CRIS Cast #: [id number] PATIENT: JESSICA CRUZ [facility] #[id number] (Continued)-------- -------- GROSS DESCRIPTION Prostate chips. Received are several fragments of resendiz tissue, measuring aggregate of 2 x 2 x 0.3 cm. Filtered in a teabag and entirely submitted as A1. /tc/nr MICROSCOPIC DESCRIPTION Prostate chips. Sections show benign prostatic tissue with stromal hyperplasia. /pdb - Signed SIGNATURE ON FILE SheaDipesh 08/14/19 1347 END OF REPORT BASIC METABOLIC PANEL 2019-08-14 07:09:00 Test Item Value Reference Range Interpretation Comme nts SODIUM (test code = NA) 134 MMOL/L 137-145 L POTASSIUM (test code = K) 3.5 MMOL/L 3.5-5.1 N CHLORIDE (test code = CL) 103 MMOL/L 98-107 N CARBON DIOXIDE (test code = CO2) 25 MMOL/L 22-30 N GLUCOSE (test code = GLU) 134 MG/DL 74-106 H BLOOD UREA NITROGEN (test code = 10 MG/DL 9-20 N BUN) GLOMERULAR FILTRATION RATE (test > 60 Reporting units: ml/min/1.73 code = GFR) m2 (Modified M DRD Formula)Referen ce Range: > or = 60 ml/min/1.7 3 m2 CREATININE (test code = CREAT) 0.80 MG/DL 0.66-1.25 N CALCIUM (test code = CA) 8.6 MG/DL 8.4-10.2 N BASIC METABOLIC [id number] 07:06:00 Test Item Value Reference Range Interpretation Comments SODIUM (test code = NA) 134 MMOL/L 137-145 L POTASSIUM (test code = K) 3.5 MMOL/L 3.5-5.1 N CHLORIDE (test code = CL) 103 MMOL/L 98-107 N CARBON DIOXIDE (test code = CO2) MMOL/L 22-30 GLUCOSE (test code = GLU) MG/DL 74-106 BLOOD UREA NITROGEN (test code = MG/DL 9-20 BUN) GLOMERULAR FILTRATION RATE (test code = GFR) CREATININE (test code = CREAT) MG/DL 0.66-1.25 CALCIUM (test code = CA) MG/DL 8.7-9.7 CBC W/AUTO [id number] 06:45:00 Test Item Value Reference Range Interpretation Comments WHITE BLOOD CELL (test code = 14.1 K/MM3 3.8-9.8 H WBC) RED BLOOD CELL (test code = 4.71 M/MM3 3.95-5.67 N RBC) HEMOGLOBIN (test code = HGB) 15.0 G/DL 12.4-16.7 N HEMATOCRIT (test code = HCT) 44.6 % 35.9-49.5 N MEAN CELL VOLUME (test code = 95 fL 81.7-96.1 N MCV) MEAN CELL HGB (test code = MCH) 31.8 pg 27.6-33.2 N MEAN CELL HGB CONCETRATION 33.6 % 32.9-35.5 N (test code = MCHC) RED CELL DISTRIBUTION WIDTH 12.9 % 12.1-15.2 N (test code = RDW) PLATELET COUNT (test code = 210 K/MM3 129-368 N PLT) MEAN PLATELET VOLUME (test code 10.5 fl 7.4-10.4 H = MPV) NEUTROPHIL % (test code = NT%) 73.3 % 43-75 N IMMATURE GRANULOCYTE % (test 0.7 % 0.0-2.0 N code = IG%) LYMPHOCYTE % (test code = LY%) 16.4 % 14-44 N MONOCYTE % (test code = MO%) 9.4 % 4-13 N EOSINOPHIL % (test code = EO%) 0.1 % 0-6 N BASOPHIL % (test code = BA%) 0.1 % 0-2 N NUCLEATED RBC % (test code = 0.0 % 0-1.0 N NRBC%) NEUTROPHIL # (test code = NT#) 10.33 K/mm3 2.0-7.6 H IMMATURE GRANULOCYTE # (test 0.10 x10 3/uL 0-0.03 H code = IG#) LYMPHOCYTE # (test code = LY#) 2.31 K/mm3 1.0-3.8 N MONOCYTE # (test code = MO#) 1.33 K/mm3 0.1-0.8 H EOSINOPHIL # (test code = EO#) 0.01 K/mm3 0.0-0.2 N BASOPHIL # (test code = BA#) 0.02 K/mm3 0.0-0.2 N NUCLEATED RBC # (test code = 0.00 K/mm3 0.0-0.1 N NRBC#) BASIC METABOLIC [id number] 12:58:00 Test Item Value Reference Range Interpretation Comments SODIUM (test code = 137 MMOL/L 137-145 N NA) POTASSIUM (test code = 4.6 MMOL/L 3.5-5.1 N K) CHLORIDE (test code = 103 MMOL/L 98-107 N CL) CARBON DIOXIDE (test 30 MMOL/L 22-30 N code = CO2) ANION GAP (test code = 9 MMOL/L 14-24 L GAP) GLUCOSE (test code = 126 MG/DL 74-106 H GLU) BLOOD UREA NITROGEN 17 MG/DL 9-20 N (test code = BUN) GLOMERULAR FILTRATION > 60 Report ing units: RATE (test code = GFR) ml/mi n/1.73 m2 (Modified MDRD Formula)Referen ce Range: > or = 6 0 ml/min/1.73 m2 CREATININE (test code 0.90 MG/DL 0.66-1.25 N = CREAT) CALCIUM (test code = 8.7 MG/DL 8.4-10.2 N CA) Specimen comments: Patient in PACUCBC W/AUTO [id number] 12:40:00 Test Item Value Reference Range Interpretation Comments WHITE BLOOD CELL (test code = 7.1 K/MM3 3.8-9.8 N WBC) RED BLOOD CELL (test code = 5.04 M/MM3 3.95-5.67 N RBC) HEMOGLOBIN (test code = HGB) 16.1 G/DL 12.4-16.7 N HEMATOCRIT (test code = HCT) 48.3 % 35.9-49.5 N MEAN CELL VOLUME (test code = 96 fL 81.7-96.1 N MCV) MEAN CELL HGB (test code = MCH) 31.9 pg 27.6-33.2 N MEAN CELL HGB CONCETRATION 33.3 % 32.9-35.5 N (test code = MCHC) RED CELL DISTRIBUTION WIDTH 13.1 % 12.1-15.2 N (test code = RDW) PLATELET COUNT (test code = 210 K/MM3 129-368 N PLT) MEAN PLATELET VOLUME (test code 10.1 fl 7.4-10.4 N = MPV) NEUTROPHIL % (test code = NT%) 70.4 % 43-75 N IMMATURE GRANULOCYTE % (test 0.3 % 0.0-2.0 N code = IG%) LYMPHOCYTE % (test code = LY%) 23.3 % 14-44 N MONOCYTE % (test code = MO%) 4.9 % 4-13 N EOSINOPHIL % (test code = EO%) 0.7 % 0-6 N BASOPHIL % (test code = BA%) 0.4 % 0-2 N NUCLEATED RBC % (test code = 0.0 % 0-1.0 N NRBC%) NEUTROPHIL # (test code = NT#) 5.01 K/mm3 2.0-7.6 N IMMATURE GRANULOCYTE # (test 0.02 x10 3/uL 0-0.03 N code = IG#) LYMPHOCYTE # (test code = LY#) 1.66 K/mm3 1.0-3.8 N MONOCYTE # (test code = MO#) 0.35 K/mm3 0.1-0.8 N EOSINOPHIL # (test code = EO#) 0.05 K/mm3 0.0-0.2 N BASOPHIL # (test code = BA#) 0.03 K/mm3 0.0-0.2 N NUCLEATED RBC # (test code = 0.00 K/mm3 0.0-0.1 N NRBC#) Specimen comments: Patient in PACUNovel Coronavirus 2019 [id number] 19:37:00 Test Item Value Reference Range Interpretation Comments Novel Coronavirus 2018 Inhouse (test Negative Negative code = COVNONPUI) Novel Coronavirus 2019 [id number] 19:36:00 Test Item Value Reference Range Interpretation Comments Novel Coronavirus 2018 Inhouse (test Negative Negative code = COVNONPUI) - CT HEAD/BRAIN W/O [id number] 14:41:00 Name: JESSICA CRUZ : 1970 Age/S: 47 / M [address] Unit #: [id number] Loc: [place] [address] Phys: Sondra Jessica MD Acct: [id number] Dis Date: Status: UNK PHONE #: [phone] Exam Date: 09/13/2017 1440 FAX #: Reason: dizziness + L ear pain EXAMS: CPT: [id number] CT HEAD/BRAIN W/O CONT [id number] LOCATION: T18 EXAM: CT HEAD WITHOUT CONTRAST INDICATION: dizziness + L ear pain, initial emergency room evaluation COMPARISON: None. TECHNIQUE: Multiple CT images of the head were obtained. No intravenous contrast was given. Up-to-date CT equipment and radiation dose reduction techniques were utilized. Automatic exposure control was utilized. FINDINGS: No intracranial hemorrhage or extra-axial collection is seen. No midline shift or mass effect is identified. There is no territorial infarct. The ventricles, sulci and cisterns are normal. The calvarium is intact. Peripheral soft tissues are normal. Paranasal sinuses and mastoid air cells are clear. IMPRESSION: No intracranial hemorrhage or acute abnormality. at 1441 Reported and signed by: Giovanni Cabrales M.D. CC: Sondra Jesscia MD; Kapil Vick MD Technologist:Olegario Lainez, RT(R)(CT) CTDI: DLP: Trnscb Date/Time: 09/13/2017 (1441) [id number] Orig Print D/T: S: 09/13/2017 (3726) PAGE 1 Signed Report
--- OUTSIDE RECORDS SUMMARY | 2020-02-01 15:25 | XMS REPORT | Clinical Summary ---
:1970 Author Organization [facility] Address [address] [place] [address] Care Team Providers Name Role Phone Unavailable Primary Care Provider Unavailable Allergies Not on File Medications Not on file Active Problems Not on file Encounters Date Type Specialty Care Team Description 01/01/2020 Outside Orders Central Scheduling Flores Stokes NP Di zziness and giddiness (Primary Dx); Tinnitus of lef t ear; New onset of he adaches after 01/31/2019 Social History Tobacco Use Types Packs/Day Years Used Date Never Assessed Sex Assigned at Date Recorded Not on file Last Filed Vital Signs Not on file Plan of Treatment Not on file Results Not on fileafter 01/31/2019
--- NOTE | 2020-02-01 17:55 | RAD REPORT ---
EXAM DESCRIPTION: RAD - Chest Single View - 02/01/2020 5:41 pm CLINICAL HISTORY: CHEST PAIN COMPARISON: September 2017 TECHNIQUE: AP portable chest image was obtained 02/01/2020 5:41 pm . FINDINGS: Lungs are clear. Heart and vasculature are normal. No measurable pleural effusion and no p neumothorax. No acute bony abnormality seen. No acute aortic findings suspected. No significant inter dharmesh change. IMPRESSION: No acute cardiopulmonary process.
[2020-02-01 18:07] LABS: Absolute Lymphocytes (CBC) 2.9 K/uL (0.7-4.9); Basophils % 0.6 % (0-1.3); Hematocrit 45.9 % (39.6-49.0); Lymphocytes % 40.5 % (15.3-44.8); MPV 8.9 fL (7.6-11.3); RBC Red Blood Cell Count 5.04 M/uL (4.33-5.43)
[2020-02-01 18:13] LABS: Protime INR 1.03
[2020-02-01 18:25] LABS: ALT/SGPT 18 U/L (12-78); AST/SGOT 12 U/L (15-37); Albumin 4.1 g/dL (3.4-5.0); Alkaline Phosphatase 67 U/L (45-117); BUN Blood Urea Nitrogen 16 mg/dL (7-18); Bicarbonate 30 mmol/L (21-32); Bilirubin Direct < 0.1 mg/dL (0-0.2); Bilirubin Total 0.3 mg/dL (0.2-1.0); Glucose Level 82 mg/dL (74-106); Magnesium 2.4 mg/dL (1.8-2.4); NT PRO-BNP 13 pg/mL (<125); Protein, Total 7.7 g/dL (6.4-8.2); Sodium Level 140 mmol/L (136-145); Troponin (Emerg Dept Use Only) < 0.02 ng/mL (0.0-0.045)
--- NOTE | 2020-02-01 19:12 | ER ---
Nurse's Notes [facility] [place] [place] Name: Cedric Austin Age: 49 yrs Sex: Male : 1970 Arrival Date: 02/01/2020 Time: 15:18 Bed 15 Private MD: Diagnosis: Chest pain, unspecified Presentation: 01/31 15:23 Chief complaint: Patient states: Midsternal chest pain x 2-3 weeks ago. Seen the family ca1 doctor, meds prescribed and taken, no relief. Chest pain is described as tight and heavy, intermittent, radiating to the L side of chest, pain 5/10 goes up to 8/10. Reports SOB with the CP. Reports numbness on L side of neck and L side of Head, intermittent. Reports dizziness. Coronavirus screen: Client denies travel out of the [place] in the last 14 days. shortness of breath, Client presents with at least one sign or symptom that may indicate coronavirus-19. The client denies any previous COVID testing. Ebola Screen: Patient negative for fever greater than or equal to 101.5 degrees Fahrenheit, and additional compatible Ebola Virus Disease symptoms Patient denies exposure to infectious person. Patient denies travel to an Ebola-affected area in the 21 days before illness onset. No symptoms or risks identified at this time. Initial Sepsis Screen: Does the patient meet any 2 criteria? No. Patient's initial sepsis screen is negative. Does the patient have a suspected source of infection? No. Patient's initial sepsis screen is negative. Risk Assessment: Do you want to hurt yourself or someone else? Patient reports no desire to harm self or others. Onset of symptoms was February 01, 2020. 15:23 Method Of Arrival: Ambulatory ca1 15:23 Acuity: LINDSAY 3 ca1 Triage Assessment: 17:15 General: Appears in no apparent distress. uncomfortable, Behavior is calm, cooperative, bp appropriate for age. Pain: Complains of pain in chest Pain does not radiate. EENT: No deficits noted. Neuro: No deficits noted. Cardiovascular: Rhythm is sinus rhythm. Respiratory: No deficits noted. GI: No signs and/or symptoms were reported involving the gastrointestinal system. : No signs and/or symptoms were reported regarding the genitourinary system. Derm: No deficits noted. Musculoskeletal: No deficits noted. Historical: - Allergies: 15:29 No Known Allergies; ca1 - Home Meds: 15:29 propranolol 10 mg Oral tab 1 tab 3 times per day [Active]; clopidogrel 75 mg oral tab 1 ca1 tab once daily [Active]; pantoprazole oral oral [Active]; famotidine 40 mg Oral tab 1 tab once daily [Active]; - PMHx: 15:29 Vertigo; ca1 - PSHx: 15:29 Sinus Surgery; ca1 - Immunization history:: Adult Immunizations up to date, Flu vaccine is not up to date. - Social history:: Smoking status: Patient/guardian denies using tobacco, the patient reports quitting approximately 8 years ago. Screenin:15 Abuse screen: Denies threats or abuse. Denies injuries from another. bp 17:15 Nutritional screening: No deficits noted. Tuberculosis screening: No symptoms or risk bp factors identified. Fall Risk None identified. Assessment: 17:15 General: Appears in no apparent distress. uncomfortable, Behavior is calm, cooperative, bp appropriate for age, PT MOVED TO RM 15. Pain: Complains of pain in chest Pain does not radiate. Pain began 3 WK AGO. Neuro: Level of Consciousness is awake, alert, obeys commands, Oriented to person, place, time, situation, Appropriate for age. Cardiovascular: Rhythm is sinus rhythm. Respiratory: No deficits noted. GI: No signs and/or symptoms were reported involving the gastrointestinal system. : No signs and/or symptoms were reported regarding the genitourinary system. EENT: No deficits noted. Derm: No deficits noted. Musculoskeletal: No deficits noted. 19:25 Reassessment: Patient and/or family updated on plan of care and expected duration. Pain mg2 level reassessed. Patient is alert, oriented x 3, equal unlabored respirations, skin warm/dry/pink. Patient denies pain at this time. Patient states feeling better. Vital Signs: 15:23 BP 116 / 92; Pulse 64; Resp 16 S; Temp 97.2(TE); Pulse Ox 99% on R/A; Weight 65.77 kg ca1 (R); Height 5 ft. 2 in. (157.48 cm) (R); Pain 5/10; 15:32 BP 122 / 89; ca1 17:30 BP 132 / 89; Pulse 49; Resp 15; Pulse Ox 98% ; bp 19:24 BP 112 / 77; Pulse 48; Resp 18; Temp 97.5; Pulse Ox 100% on R/A; Pain 0/10; mg2 15:23 Body Mass Index 26.52 (65.77 kg, 157.48 cm) ca1 ED Course: 15:18 Patient arrived in ED. ag5 15:26 Triage completed. ca1 15:29 Arm band placed on right wrist. ca1 17:15 Amilcar Rasmussen NP is PHCP. pm1 17:15 Kwesi Ann MD is Attending Physician. pm1 17:15 Patient has correct armband on for positive identification. Bed in low position. Call bp light in reach. Side rails up X2. butadiene converter utility operator on. Pulse ox on. NIBP on. 17:42 XRAY Chest (1 view) In Process Unspecified. EDMS 17:50 Inserted saline lock: 20 gauge in right antecubital area, using aseptic technique. bp Blood collected. 18:01 Radha Sykes, RN is Primary Nurse. iw 19:25 No provider procedures requiring assistance completed. IV discontinued, intact, mg2 bleeding controlled, No redness/swelling at site. Pressure dressing applied. Patient maintains SpO2 saturation greater than 95% on room air. Administered Medications: No medications were administered Outcome: 19:12 Discharge ordered by MD. pm1 19:25 Discharged to home ambulatory. mg2 19:25 Condition: stable 19:25 Discharge instructions given to patient, Instructed on discharge instructions, follow up and referral plans. Demonstrated understanding of instructions, follow-up care. 19:28 Patient left the ED. mg2 Signatures: Dispatcher [employer] EDHI Radha Sykes RN RN Amilcar Rasmussen NP OPERATOR CAVITY PUMP pm1 Demarcus Ruiz RN RN bp Giorgio Steven RN RN [facility] Cha Rose RN RN ca1 Tiburcio Mendoza ag5 Corrections: (The following items were deleted from the chart) 15:27 15:23 Chief complaint: Patient states: Midsternal chest pain x 2-3 weeks ago. Seen the [facility] family doctor, meds prescribed and taken, no relief. Reports SOB with the CP. Reports numbness on L side of neck and L side of Head, intermittent. Reports dizziness. ca1 17:58 17:15 Pain: Complains of pain in chest Pain does not radiate. bp bp
--- NOTE | 2020-02-01 19:12 | EDPHYS ---
Physician Documentation [facility] Name: Cedric Austin Age: 49 yrs Sex: Male : 1970 Arrival Date: 02/01/2020 Time: 15:18 Bed 15 Private MD: SHANIA Physician Kwesi Ann HPI: 01/31 17:26 This 49 yrs old Unknown Male presents to ER via Ambulatory with complaints of Chest pm1 Pain, Chest Pressure, Chest Tightness, Numbness. 17:26 The patient or guardian reports chest pain that is located primarily in the mid-sternal pm1 area. 17:26 Onset: 3 week(s) ago. The pain does not radiate. Associated signs and symptoms: pm1 Pertinent positives: dizziness, numbness to both hands, Pertinent negatives: abdominal pain, diaphoresis, nausea, shortness of breath, vomiting. The chest pain is described as burning. Duration: The patient or guardian reports multiple episodes. Modifying factors: The symptoms are alleviated by nothing. the symptoms are aggravated by eating. The patient has been recently seen by a physician: the patient's primary care provider, with similar presenting complaints, prescribed propanolol PRN, plavix, and PPI. Historical: - Allergies: 15:29 No Known Allergies; ca1 - Home Meds: 15:29 propranolol 10 mg Oral tab 1 tab 3 times per day [Active]; clopidogrel 75 mg oral tab 1 ca1 tab once daily [Active]; pantoprazole oral oral [Active]; famotidine 40 mg Oral tab 1 tab once daily [Active]; - PMHx: 15:29 Vertigo; ca1 - PSHx: 15:29 Sinus Surgery; ca1 - Immunization history:: Adult Immunizations up to date, Flu vaccine is not up to date. - Social history:: Smoking status: Patient/guardian denies using tobacco, the patient reports quitting approximately 8 years ago. ROS: 17:26 Constitutional: Negative for fever, chills, and weight loss. pm1 17:26 Respiratory: Negative for shortness of breath, cough, wheezing, and pleuritic chest pain, Abdomen/GI: Negative for abdominal pain, nausea, vomiting, diarrhea, and constipation, Back: Negative for injury and pain, MS/Extremity: Negative for injury and deformity, Skin: Negative for injury, rash, and discoloration. 17:26 Cardiovascular: Positive for chest pain, Negative for edema, orthopnea, palpitations. 17:26 Neuro: Positive for dizziness, numbness, of the right hand and left hand, Negative for headache, weakness. Exam: 17:26 Constitutional: This is a well developed, well nourished patient who is awake, alert, pm1 and in no acute distress. Head/Face: Normocephalic, atraumatic. Neck: Trachea midline, no thyromegaly or masses palpated, and no cervical lymphadenopathy. Supple, full range of motion without nuchal rigidity, or vertebral point tenderness. No Meningismus. Chest/axilla: Normal chest wall appearance and motion. Nontender with no deformity. No lesions are appreciated. Cardiovascular: Regular rate and rhythm with a normal S1 and S2. No gallops, murmurs, or rubs. Normal PMI, no JVD. No pulse deficits. Respiratory: Lungs have equal breath sounds bilaterally, clear to auscultation and percussion. No rales, rhonchi or wheezes noted. No increased work of breathing, no retractions or nasal flaring. 17:26 Back: No spinal tenderness. No costovertebral tenderness. Full range of motion. Skin: Warm, dry with normal turgor. Normal color with no rashes, no lesions, and no evidence of cellulitis. MS/ Extremity: Pulses equal, no cyanosis. Neurovascular intact. Full, normal range of motion. 17:26 Abdomen/GI: Inspection: abdomen appears normal, Palpation: abdomen is soft and non-tender, in all quadrants, mass, is not appreciated, rebound tenderness, is not appreciated. 17:26 Neuro: Exam negative for acute changes, Orientation: is normal, Mentation: is normal, Motor: is normal, moves all fours. Vital Signs: 15:23 BP 116 / 92; Pulse 64; Resp 16 S; Temp 97.2(TE); Pulse Ox 99% on R/A; Weight 65.77 kg ca1 (R); Height 5 ft. 2 in. (157.48 cm) (R); Pain 5/10; 15:32 BP 122 / 89; ca1 17:30 BP 132 / 89; Pulse 49; Resp 15; Pulse Ox 98% ; bp 19:24 BP 112 / 77; Pulse 48; Resp 18; Temp 97.5; Pulse Ox 100% on R/A; Pain 0/10; mg2 15:23 Body Mass Index 26.52 (65.77 kg, 157.48 cm) ca1 MDM: 17:17 Patient medically screened. pm1 18:39 Data reviewed: vital signs. Data interpreted: Pulse oximetry: on room air is 98 %. pm1 Interpretation: normal. 19:11 Counseling: I had a detailed discussion with the patient and/or guardian regarding: the pm1 historical points, exam findings, and any diagnostic results supporting the discharge/admit diagnosis, lab results, radiology results, the need for outpatient follow up, to return to the emergency department if symptoms worsen or persist or if there are any questions or concerns that arise at home. 01/31 17:24 Order name: Basic Metabolic Panel; Complete Time: 18:27 pm1 01/31 17:24 Order name: CBC with Diff; Complete Time: 18:27 pm1 01/31 17:24 Order name: LFT's; Complete Time: 18:27 pm1 01/31 17:24 Order name: Magnesium; Complete Time: 18:27 pm1 01/31 17:24 Order name: NT PRO-BNP; Complete Time: 18:27 pm1 01/31 17:24 Order name: PT-INR; Complete Time: 18:27 pm1 01/31 15:29 Order name: EKG; Complete Time: 15:30 ca1 01/31 15:29 Order name: EKG - Nurse/Tech; Complete Time: 15:29 ca1 01/31 17:24 Order name: Troponin (emerg Dept Use Only); Complete Time: 18:27 pm1 01/31 17:24 Order name: XRAY Chest (1 view); Complete Time: 17:58 pm1 01/31 17:24 Order name: Cardiac monitoring; Complete Time: 17:54 pm1 01/31 17:24 Order name: IV Saline Lock; Complete Time: 17:54 pm1 01/31 17:24 Order name: Labs collected and sent; Complete Time: 17:54 pm1 01/31 18:37 Order name: D-Dimer; Complete Time: 19:11 iw 01/31 17:24 Order name: O2 Per Protocol; Complete Time: 17:55 pm1 01/31 17:24 Order name: O2 Sat Monitoring; Complete Time: 17:55 pm1 Administered Medications: No medications were administered Disposition: 02/01 08:03 Co-signature as Attending Physician, Kwesi Ann MD I agree with the assessment and negrita plan of care. Disposition: 02/01/20 19:12 Discharged to Home. Impression: Chest pain, unspecified. - Condition is Stable. - Discharge Instructions: Nonspecific Chest Pain. - Medication Reconciliation Form, Thank You Letter, Antibiotic Education, Prescription Opioid Use form. - Follow up: Emergency Department; When: As needed; Reason: Worsening of condition. Follow up: Private Physician; When: 2 - 3 days; Reason: Recheck today's complaints, Continuance of care, Re-evaluation by your physician. - Problem is new. - Symptoms have improved. Signatures: Dispatcher [employer] EDMS Kwesi Ann, Amilcar Dean MD, cha, APPLICATIONS INTERN APPLICATIONS INTERN pm1 Giorgio Steven RN RN mg2 Cha Rose RN RN ca1 Corrections: (The following items were deleted from the chart) 01/31 19:28 19:12 02/01/2020 19:12 Discharged to Home. Impression: Chest pain, unspecified. mg2 Condition is Stable. Forms are Medication Reconciliation Form, Thank You Letter, Antibiotic Education, Prescription Opioid Use. Follow up: Emergency Department; When: As needed; Reason: Worsening of condition. Follow up: Private Physician; When: 2 - 3 days; Reason: Recheck today's complaints, Continuance of care, Re-evaluation by your physician. Problem is new. Symptoms have improved. pm1 22:26 17:26 The chest pain is described as burning, pm1 pm1
[2020-02-01 19:41] VITALS: BP 112/77; TEMP 97.5; O2SAT 100
--- NOTE | 2020-02-02 10:09 | EKG ---
Test Date: 2020-02-01 Test Time: 15:35:54 Dental Office Assistant: SP MEASUREMENT RESULTS: Intervals: Rate: 64 AL: 142 QRSD: 96 QT: 372 QTc: 383 [place]: P: 65 AL: 142 QRS: 100 T: 54 INTERPRETIVE STATEMENTS: Normal sinus rhythm Rightward axis Borderline ECG Compared to ECG 09/15/2017 15:48:51 Right-axis deviation now present Sinus bradycardia no longer present Sinus arrhythmia no longer present Electronically Signed On 02-02-20 10:06:47 CDT by Mauricio Johnson
== END 2020-02-01 19:28 | disposition home or self-care (01) ==
LOC: ER 15:16
DX: R07.9 Chest pain, unspecified (principal)
CPT/HCPCS: 36415; 71045; 80048; 80076; 83735; 83880; 84484; 85025; 85379; 85610; 93005; 99285